=== PATIENT | female | born 1945 | race Caucasian/White ===

== ENCOUNTER → 2017-08-28 | Outpatient (CLI) | payer MEDICARE | LOC: RAD 14:10 | PROVIDERS: ATTEND Physician Assistant Medical | DX: J98.11 Atelectasis (principal) | CPT/HCPCS: 71046 ==

== ENCOUNTER 2017-12-20 10:54 | Inpatient (IN) | payer MEDICARE ==
[~2017-12-20] VITALS: Ht 149.9 cm; Wt 93.1 kg
[~2017-12-20 10:54] MED LIST: ALLO300T PO; AMLO5TAB2 PO; ASPI-515 PO; ATOR-2 PO; BUSP15TA PO; FLUO25PO PO; INSU100V8 SQ; METO25TA4 PO
[2017-12-20] MEDS ORDERED: SODIUM CHLORIDE FLUSH 10ML SYR IVF ONE (12:00)
[2017-12-20] MEDS ORDERED: SODIUM CHLORIDE 0.9% 1,000ML IVBOLUS ONE (12:00)
[2017-12-20] MEDS ORDERED: ATOR40TA78 PO (12:02)
[2017-12-20] MEDS ORDERED: CHOL4POW3 PO (12:06)
[2017-12-20 13:25] LABS: BASOPHILS # (AUTO) 0.09 x10^3/uL (0-0.1); BASOPHILS % (AUTO) 1 % (0-1); EOSINOPHILS # (AUTO) 0.58 x10^3/uL (0-0.4); EOSINOPHILS % (AUTO) 4 % (1-7); LYMPHOCYTES # (AUTO) 0.89 x10^3/uL (1-3.4); LYMPHOCYTES % (AUTO) 6 % (22-44); MD NO; MEAN CORPUSCULAR HEMOGLOBIN 31.7 pg (27.0-34.8); MEAN CORPUSCULAR HGB CONC 31.7 g/dL (32.4-35.8); MEAN CORPUSCULAR VOLUME 99.9 fL (80-100); MEAN PLATELET VOLUME 7.8 fL (7.4-10.4); MONOCYTES # (AUTO) 1.39 x10^3/uL (0.2-0.8); MONOCYTES % (AUTO) 9 % (2-9); NEUTROPHILS # (AUTO) 12.78 x10^3/uL (1.8-6.8); NEUTROPHILS % (AUTO) 81 % (42-75); PLATELET COUNT 504 x10^3/uL (130-400); RED BLOOD COUNT 2.49 x10^6/uL (3.82-5.3); RED CELL DISTRIBUTION WIDTH 20.4 % (9.6-15.2)
[2017-12-20] MEDS ORDERED: DAPTOMYCIN 750 MG (13:34)
[2017-12-20 13:35] LABS: ALANINE AMINOTRANSFERASE 48 U/L (12-78); ALBUMIN 1.7 g/dL (3.4-5.0); ANION GAP 6 mmol/L (5-15); CALCIUM 8.4 mg/dL (8.5-10.1); CHLORIDE 103 mmol/L (98-107)
[2017-12-20] MEDS ORDERED: INSU100I28 SQ (13:38)
[2017-12-20] MEDS ORDERED: CHOL4POW3 PEG (13:39)
[2017-12-20 13:40] LABS: ALKALINE PHOSPHATASE 304 U/L (45-117); BILIRUBIN,TOTAL 0.3 mg/dL (0.2-1.0); CREATININE 1.73 mg/dL (0.55-1.02); TOTAL PROTEIN 6.6 g/dL (6.4-8.2); TROPONIN I < 0.015 ng/mL (0.000-0.045)
[2017-12-20] MEDS ORDERED: INSULIN NPH SQ (13:42)
[2017-12-20] MEDS ORDERED: ENOXAPARIN 30 MG/0.3 ML SQ SCH (14:00)
[2017-12-20] MEDS ORDERED: ENALAPRILAT 1.25 MG/ML, 2ML IVPush PRN (14:00)
[2017-12-20] MEDS ORDERED: PIPERACILLIN/TAZO/PMX 3.375GM 50 ML IV SCH (14:00)
[2017-12-20] MEDS ORDERED: DUONEB (14:22)
[2017-12-20 14:52] LABS: INTERNATIONAL NORMALIZED RATIO 0.92 (0.93-1.1); PROTHROMBIN TIME 9.6 Seconds (9.6-11.5)
[2017-12-20 15:10] LABS: HEMOGLOBIN A1C 5.5 % (4.2-6.3)
[2017-12-20] MEDS ORDERED: ALBUTEROL/IPRATROPIUM 2.5MG/0.5MG, 3 ML NPPB PRN (15:30)
[2017-12-20 15:34] LABS: FREE T4 (FREE THYROXINE) 0.81 ng/dL (0.76-1.46)
[2017-12-20] MEDS ORDERED: GUAIFENESIN 200 MG TABLET PO SCH (16:00)
[2017-12-20] MEDS: PIPERACILLIN/TAZO/PMX 3.375GM 50 ML IV SCH ×2 (17:26→22:23)
[2017-12-20] MEDS: HEPARIN 5,000 UNITS/ML, 1ML SQ SCH (17:27)
[2017-12-20] MEDS ORDERED: CATHFLO-ALTEPLASE 2 MG/2 ML CATHFLUSH ONE ×2 (18:00)
[2017-12-20] MEDS: INSULIN LISPRO 100 UNITS/ML, PEN SQ-INSULIN SCH ×2 (18:16→22:23)
[2017-12-20] MEDS: DOXYCYCLINE 100 MG in DEXTROSE 5% 250 ML IV SCH (18:19)
[2017-12-20 18:38] VITALS: BP 132/67
[2017-12-20 19:01] LABS: OCCULT BLOOD NEGATIVE (NEGATIVE)
[2017-12-20 19:11] LABS: CLOSTRIDIUM DIFFICILE ANTIGEN NEGATIVE; CLOSTRIDIUM DIFFICILE TOXIN NEGATIVE (Negative)
[2017-12-20 19:22] LABS: FOLATE LEVEL 17.5 ng/mL (3.1-17.5)
[2017-12-20 19:26] LABS: ABSOLUTE RETICS # 0.139 x10^6/uL (0.5-2.5); RETICULOCYTE COUNT % 5.7 % (0.5-1.5)
[2017-12-20 19:28] LABS: RED BLOOD COUNT 2.44 x10^6/uL (3.82-5.3)
[2017-12-20 19:30] LABS: TROPONIN I < 0.015 ng/mL (0.000-0.045)
[2017-12-20 19:34] LABS: FREE T4 (FREE THYROXINE) 0.88 ng/dL (0.76-1.46)
[2017-12-20] MEDS: ALBUTEROL/IPRATROPIUM 2.5MG/0.5MG, 3 ML NPPB SCH (19:52)
[2017-12-20] MEDS: DAPTOMYCIN 350 MG in SODIUM CHLORIDE 0.9% 100 ML IV SCH (20:38)
[2017-12-20] MEDS: BUSPIRONE 10 MG TABLET PEG SCH (20:38)
[2017-12-20] MEDS: ATORVASTATIN 40 MG TABLET PEG SCH (20:38)
[2017-12-20] MEDS: CHOLESTYRAMINE LIGHT 4GM PACKET PEG SCH (20:58)
[2017-12-20] MEDS: GUAIFENESIN 100 MG/5 ML, 10ML UDC PEG SCH (20:58)
[2017-12-20 21:50] LABS: MICROSCOPIC INDICATED
[2017-12-20 22:45] LABS: TROPONIN I < 0.015 ng/mL (0.000-0.045)
[2017-12-21 02:30] VITALS: BP 139/71
[2017-12-21] MEDS: HEPARIN 5,000 UNITS/ML, 1ML SQ SCH ×3 (02:57→17:05)
[2017-12-21] MEDS: PIPERACILLIN/TAZO/PMX 3.375GM 50 ML IV SCH ×4 (04:19→20:46)
[2017-12-21] MEDS: DOXYCYCLINE 100 MG in DEXTROSE 5% 250 ML IV SCH ×2 (06:05→17:04)
[2017-12-21] MEDS: GUAIFENESIN 100 MG/5 ML, 10ML UDC PEG SCH ×4 (06:14→20:46)
[2017-12-21 06:47] LABS: THYROID STIMULATING HORMONE 5.06 mIU/L (0.358-3.740)
[2017-12-21] MEDS: ALBUTEROL/IPRATROPIUM 2.5MG/0.5MG, 3 ML NPPB SCH ×4 (07:30→20:00)
[2017-12-21 07:35] VITALS: BP 117/62
[2017-12-21] MEDS: INSULIN LISPRO 100 UNITS/ML, PEN SQ-INSULIN SCH ×4 (09:51→22:16)
[2017-12-21] MEDS: CALCIUM ACETATE 667 MG CAPSULE PO SCH ×3 (09:52→20:46)
[2017-12-21] MEDS: BUSPIRONE 10 MG TABLET PEG SCH ×2 (09:52→20:46)
[2017-12-21] MEDS: ALLOPURINOL 300 MG TABLET PEG SCH (09:52)
[2017-12-21] MEDS: METOPROLOL TARTRATE 25 MG TABLET PEG SCH (09:53)
[2017-12-21] MEDS: CHOLESTYRAMINE LIGHT 4GM PACKET PEG SCH ×2 (09:53→20:47)
[2017-12-21 09:55] VITALS: BP 138/79
[2017-12-21 11:36] LABS: BASOPHILS # (AUTO) 0.02 x10^3/uL (0-0.1); BASOPHILS % (AUTO) 0 % (0-1); EOSINOPHILS # (AUTO) 0.47 x10^3/uL (0-0.4); EOSINOPHILS % (AUTO) 4 % (1-7); LYMPHOCYTES # (AUTO) 0.74 x10^3/uL (1-3.4); LYMPHOCYTES % (AUTO) 6 % (22-44); MD NO; MEAN CORPUSCULAR VOLUME 100.1 fL (80-100); MEAN PLATELET VOLUME 7.3 fL (7.4-10.4); MONOCYTES # (AUTO) 0.81 x10^3/uL (0.2-0.8); MONOCYTES % (AUTO) 6 % (2-9); NEUTROPHILS # (AUTO) 11.34 x10^3/uL (1.8-6.8); NEUTROPHILS % (AUTO) 85 % (42-75); PLATELET COUNT 459 x10^3/uL (130-400); RED BLOOD COUNT 2.46 x10^6/uL (3.82-5.3); RED CELL DISTRIBUTION WIDTH 20.4 % (9.6-15.2)
[2017-12-21 11:48] LABS: ALANINE AMINOTRANSFERASE 43 U/L (12-78); ALBUMIN 1.6 g/dL (3.4-5.0); ANION GAP 8 mmol/L (5-15); CALCIUM 7.6 mg/dL (8.5-10.1); CHLORIDE 104 mmol/L (98-107)
[2017-12-21 11:50] LABS: ALKALINE PHOSPHATASE 260 U/L (45-117); BILIRUBIN,TOTAL 0.6 mg/dL (0.2-1.0); CREATININE 1.69 mg/dL (0.55-1.02); TOTAL PROTEIN 6.4 g/dL (6.4-8.2)
[2017-12-21] MEDS ORDERED: FUROSEMIDE 40 MG/4 ML IV ONE (12:30)
[2017-12-21 12:51] VITALS: BP 105/66
[2017-12-21 13:44] LABS: MICROSCOPIC INDICATED
[2017-12-21 13:48] LABS: CULTURE INDICATED? YES
[2017-12-21 19:21] LABS: ANION GAP 9 mmol/L (5-15); CALCIUM 7.7 mg/dL (8.5-10.1); CHLORIDE 104 mmol/L (98-107); CREATININE 1.71 mg/dL (0.55-1.02)
[2017-12-21 19:53] VITALS: BP 102/58
[2017-12-21] MEDS: DAPTOMYCIN 350 MG in SODIUM CHLORIDE 0.9% 100 ML IV SCH (20:12)
[2017-12-21] MEDS: ATORVASTATIN 40 MG TABLET PEG SCH (20:46)
[2017-12-21] MEDS ORDERED: INSULIN GLARGINE 100 UNITS/ML, PEN SQ-INSULIN SCH (21:00)
[2017-12-22] MEDS: HEPARIN 5,000 UNITS/ML, 1ML SQ SCH ×3 (01:35→17:37)
[2017-12-22] MEDS: PIPERACILLIN/TAZO/PMX 3.375GM 50 ML IV SCH ×2 (03:07→09:28)
[2017-12-22 04:00] VITALS: BP 142/71
[2017-12-22 04:51] LABS: MEAN CORPUSCULAR HEMOGLOBIN 32.9 pg (27.0-34.8); MEAN CORPUSCULAR HGB CONC 32.6 g/dL (32.4-35.8); MEAN CORPUSCULAR VOLUME 101.2 fL (80-100); MEAN PLATELET VOLUME 7.3 fL (7.4-10.4); PLATELET COUNT 425 x10^3/uL (130-400); RED BLOOD COUNT 2.35 x10^6/uL (3.82-5.3); RED CELL DISTRIBUTION WIDTH 19.8 % (9.6-15.2)
[2017-12-22] MEDS: DOXYCYCLINE 100 MG in DEXTROSE 5% 250 ML IV SCH ×2 (05:08→17:37)
[2017-12-22] MEDS: GUAIFENESIN 100 MG/5 ML, 10ML UDC PEG SCH ×4 (05:08→22:03)
[2017-12-22 05:48] LABS: BASOPHILS % (AUTO) 0 % (0-1); EOSINOPHILS # (AUTO) 0.61 x10^3/uL (0-0.4); EOSINOPHILS % (AUTO) 4 % (1-7); LYMPHOCYTES # (AUTO) 0.62 x10^3/uL (1-3.4); LYMPHOCYTES % (AUTO) 4 % (22-44); MD SCAN; MONOCYTES # (AUTO) 0.72 x10^3/uL (0.2-0.8); MONOCYTES % (AUTO) 5 % (2-9); NEUTROPHILS # (AUTO) 13.83 x10^3/uL (1.8-6.8); NEUTROPHILS % (AUTO) 88 % (42-75)
[2017-12-22 06:41] LABS: ALANINE AMINOTRANSFERASE 41 U/L (12-78); ALBUMIN 1.5 g/dL (3.4-5.0); ANION GAP 9 mmol/L (5-15); CALCIUM 7.7 mg/dL (8.5-10.1); CHLORIDE 100 mmol/L (98-107); CREATININE 1.77 mg/dL (0.55-1.02)
[2017-12-22 06:46] LABS: ALKALINE PHOSPHATASE 232 U/L (45-117); BILIRUBIN,TOTAL 0.4 mg/dL (0.2-1.0); TOTAL PROTEIN 6.1 g/dL (6.4-8.2)
[2017-12-22 07:34] VITALS: BP 136/66
[2017-12-22] MEDS: ALBUTEROL/IPRATROPIUM 2.5MG/0.5MG, 3 ML NPPB SCH ×4 (07:35→20:00)
[2017-12-22] MEDS: CALCIUM ACETATE 667 MG CAPSULE PO SCH ×3 (09:28→22:03)
[2017-12-22] MEDS: ALLOPURINOL 300 MG TABLET PEG SCH (09:28)
[2017-12-22] MEDS: METOPROLOL TARTRATE 25 MG TABLET PEG SCH (09:28)
[2017-12-22] MEDS: BUSPIRONE 10 MG TABLET PEG SCH ×2 (09:28→21:00)
[2017-12-22] MEDS: INSULIN LISPRO 100 UNITS/ML, PEN SQ-INSULIN SCH ×4 (09:29→22:02)
[2017-12-22] MEDS: CHOLESTYRAMINE LIGHT 4GM PACKET PEG SCH ×2 (09:30→22:03)
[2017-12-22 12:51] VITALS: BP 128/91
[2017-12-22] MEDS: PIPERACILLIN/TAZO/PMX 2.25GM 50 ML IV SCH ×2 (16:02→22:00)
[2017-12-22] MEDS ORDERED: INSULIN GLARGINE 100 UNITS/ML, PEN SQ-INSULIN SCH (21:00)
[2017-12-22] MEDS ORDERED: BUSPIRONE 5 MG TABLET ONE (21:29)
[2017-12-22 21:43] VITALS: BP 112/62
[2017-12-22] MEDS: ATORVASTATIN 40 MG TABLET PEG SCH (22:03)
[2017-12-23] MEDS: HEPARIN 5,000 UNITS/ML, 1ML SQ SCH ×3 (01:39→16:44)
[2017-12-23 02:03] VITALS: BP 148/60
[2017-12-23] MEDS: PIPERACILLIN/TAZO/PMX 2.25GM 50 ML IV SCH ×3 (04:14→18:26)
[2017-12-23 05:05] LABS: MEAN CORPUSCULAR HEMOGLOBIN 32.6 pg (27.0-34.8); MEAN CORPUSCULAR HGB CONC 32.6 g/dL (32.4-35.8); MEAN CORPUSCULAR VOLUME 100.1 fL (80-100); MEAN PLATELET VOLUME 7.6 fL (7.4-10.4); PLATELET COUNT 461 x10^3/uL (130-400); RED BLOOD COUNT 2.35 x10^6/uL (3.82-5.3); RED CELL DISTRIBUTION WIDTH 19.5 % (9.6-15.2)
[2017-12-23 05:07] LABS: ALBUMIN 1.5 g/dL (3.4-5.0); ANION GAP 11 mmol/L (5-15); CALCIUM 8.2 mg/dL (8.5-10.1); CHLORIDE 100 mmol/L (98-107)
[2017-12-23 05:10] LABS: ALANINE AMINOTRANSFERASE 37 U/L (12-78); ALKALINE PHOSPHATASE 212 U/L (45-117); BILIRUBIN,TOTAL 0.4 mg/dL (0.2-1.0); CREATINE KINASE, TOTAL 14 U/L (26-192); CREATININE 1.61 mg/dL (0.55-1.02); TOTAL PROTEIN 6.3 g/dL (6.4-8.2)
[2017-12-23] MEDS: DOXYCYCLINE 100 MG in DEXTROSE 5% 250 ML IV SCH ×2 (05:41→16:45)
[2017-12-23] MEDS: GUAIFENESIN 100 MG/5 ML, 10ML UDC PEG SCH ×4 (05:41→22:01)
[2017-12-23 05:56] LABS: BASOPHILS # (AUTO) 0.01 x10^3/uL (0-0.1); BASOPHILS % (AUTO) 0 % (0-1); EOSINOPHILS # (AUTO) 0.45 x10^3/uL (0-0.4); EOSINOPHILS % (AUTO) 2 % (1-7); LYMPHOCYTES # (AUTO) 0.71 x10^3/uL (1-3.4); LYMPHOCYTES % (AUTO) 4 % (22-44); MD SCAN; MONOCYTES # (AUTO) 1.14 x10^3/uL (0.2-0.8); MONOCYTES % (AUTO) 6 % (2-9); NEUTROPHILS # (AUTO) 16.31 x10^3/uL (1.8-6.8); NEUTROPHILS % (AUTO) 88 % (42-75)
[2017-12-23] MEDS: ALBUTEROL/IPRATROPIUM 2.5MG/0.5MG, 3 ML NPPB SCH ×4 (07:00→20:20)
[2017-12-23 07:23] VITALS: BP 140/69
[2017-12-23] MEDS ORDERED: CEFTAROLINE 600 MG in SODIUM CHLORIDE 0.9% 100 ML IV SCH (07:30)
[2017-12-23] MEDS ORDERED: MIDAZOLAM 1 MG/ML, 5ML ONE (08:00)
[2017-12-23] MEDS ORDERED: PROPOFOL 10 MG/ML, 100ML IV ONE (08:00)
[2017-12-23] MEDS ORDERED: VECURONIUM 10 MG ONE (08:00)
[2017-12-23] MEDS: CALCIUM ACETATE 667 MG CAPSULE PO SCH ×3 (09:27→22:01)
[2017-12-23] MEDS: METOPROLOL TARTRATE 25 MG TABLET PEG SCH (09:28)
[2017-12-23] MEDS: INSULIN LISPRO 100 UNITS/ML, PEN SQ-INSULIN SCH ×4 (09:28→22:02)
[2017-12-23] MEDS: BUSPIRONE 10 MG TABLET PEG SCH ×2 (09:28→22:01)
[2017-12-23] MEDS: ALLOPURINOL 300 MG TABLET PEG SCH (09:28)
[2017-12-23 12:05] VITALS: BP 146/70
[2017-12-23] MEDS: FUROSEMIDE 40 MG/4 ML IV SCH ×2 (12:33→16:45)
[2017-12-23] MEDS ORDERED: DAPTOMYCIN 350 MG in SODIUM CHLORIDE 0.9% 100 ML IV SCH (20:00)
[2017-12-23] MEDS ORDERED: INSULIN GLARGINE 100 UNITS/ML, PEN SQ-INSULIN SCH (21:00)
[2017-12-23 21:41] VITALS: BP 121/58
[2017-12-23] MEDS: ATORVASTATIN 40 MG TABLET PEG SCH (22:01)
[2017-12-23] MEDS: CHOLESTYRAMINE LIGHT 4GM PACKET PEG SCH (22:01)
[2017-12-23] MEDS: MICAFUNGIN 100 MG in SODIUM CHLORIDE 0.9% 100 ML IV SCH (22:01)
[2017-12-23] MEDS: CEFTAROLINE 400 MG in SODIUM CHLORIDE 0.9% 100 ML IV SCH (23:19)
[2017-12-24] MEDS: PIPERACILLIN/TAZO/PMX 2.25GM 50 ML IV SCH ×4 (00:35→17:17)
[2017-12-24] MEDS: HEPARIN 5,000 UNITS/ML, 1ML SQ SCH ×3 (02:04→16:03)
[2017-12-24 02:34] VITALS: BP 121/49
[2017-12-24] MEDS ORDERED: ONDANSETRON 2MG/ML, 2ML IVPush PRN (05:30)
[2017-12-24 05:55] LABS: MEAN CORPUSCULAR HEMOGLOBIN 33.3 pg (27.0-34.8); MEAN CORPUSCULAR HGB CONC 33.7 g/dL (32.4-35.8); PLATELET COUNT 448 x10^3/uL (130-400); RED CELL DISTRIBUTION WIDTH 19.1 % (9.6-15.2)
[2017-12-24 06:09] LABS: ALANINE AMINOTRANSFERASE 31 U/L (12-78); ALBUMIN 1.5 g/dL (3.4-5.0); ANION GAP 9 mmol/L (5-15); CALCIUM 8.6 mg/dL (8.5-10.1); CHLORIDE 98 mmol/L (98-107); CREATININE 1.77 mg/dL (0.55-1.02)
[2017-12-24 06:11] LABS: ALKALINE PHOSPHATASE 199 U/L (45-117); BILIRUBIN,TOTAL 0.3 mg/dL (0.2-1.0); TOTAL PROTEIN 6.4 g/dL (6.4-8.2)
[2017-12-24 06:23] LABS: BASOPHILS # (AUTO) 0.02 x10^3/uL (0-0.1); BASOPHILS % (AUTO) 0 % (0-1); EOSINOPHILS # (AUTO) 0.65 x10^3/uL (0-0.4); EOSINOPHILS % (AUTO) 4 % (1-7); LYMPHOCYTES # (AUTO) 0.98 x10^3/uL (1-3.4); LYMPHOCYTES % (AUTO) 6 % (22-44); MD SCAN; MONOCYTES # (AUTO) 1.19 x10^3/uL (0.2-0.8); MONOCYTES % (AUTO) 8 % (2-9); NEUTROPHILS # (AUTO) 12.68 x10^3/uL (1.8-6.8); NEUTROPHILS % (AUTO) 82 % (42-75)
[2017-12-24] MEDS: DOXYCYCLINE 100 MG in DEXTROSE 5% 250 ML IV SCH ×2 (06:23→17:17)
[2017-12-24] MEDS: GUAIFENESIN 100 MG/5 ML, 10ML UDC PEG SCH ×4 (06:24→21:40)
[2017-12-24] MEDS: ALBUTEROL/IPRATROPIUM 2.5MG/0.5MG, 3 ML NPPB SCH ×4 (07:00→22:22)
[2017-12-24] MEDS: FUROSEMIDE 40 MG/4 ML IV SCH ×4 (07:30→16:11)
[2017-12-24 08:23] VITALS: BP 99/53
[2017-12-24] MEDS: CEFTAROLINE 400 MG in SODIUM CHLORIDE 0.9% 100 ML IV SCH ×2 (08:39→23:04)
[2017-12-24] MEDS: INSULIN LISPRO 100 UNITS/ML, PEN SQ-INSULIN SCH ×4 (08:39→21:52)
[2017-12-24] MEDS: METOPROLOL TARTRATE 25 MG TABLET PEG SCH (08:40)
[2017-12-24] MEDS: CALCIUM ACETATE 667 MG CAPSULE PO SCH ×3 (08:41→21:41)
[2017-12-24] MEDS: BUSPIRONE 10 MG TABLET PEG SCH ×2 (08:41→21:40)
[2017-12-24] MEDS: ALLOPURINOL 300 MG TABLET PEG SCH (08:41)
[2017-12-24] MEDS ORDERED: FUROSEMIDE 40 MG/4 ML IV ONE (12:30)
[2017-12-24 13:18] VITALS: BP 114/69
[2017-12-24] MEDS ORDERED: SODIUM BICARB 8.4%, 50ML SYRINGE ONE (14:17)
[2017-12-24] MEDS ORDERED: SODIUM BICARB 8.4%, 50ML SYRINGE IVPush ONE (14:30)
[2017-12-24] MEDS ORDERED: MIDAZOLAM 1 MG/ML, 5ML IVPush ONE (15:25)
[2017-12-24] MEDS ORDERED: LIDOCAINE-MPF 1%, 2ML ENDO PRN (15:30)
[2017-12-24] MEDS ORDERED: PHARMACY MAY ADJ FOR RENAL FX MC SCH (15:30)
[2017-12-24] MEDS: PROPOFOL 100 ML IV PRN ×2 (15:30→20:46)
[2017-12-24] MEDS ORDERED: SODIUM CHLORIDE 0.9%, 500ML IVBOLUS ONE (16:30)
[2017-12-24] MEDS: MICAFUNGIN 100 MG in SODIUM CHLORIDE 0.9% 100 ML IV SCH (20:48)
[2017-12-24] MEDS ORDERED: INSULIN GLARGINE 100 UNITS/ML, PEN SQ-INSULIN SCH (21:00)
[2017-12-24] MEDS: ATORVASTATIN 40 MG TABLET PEG SCH (21:39)
[2017-12-24] MEDS: CHOLESTYRAMINE LIGHT 4GM PACKET PEG SCH (21:41)
[2017-12-25] MEDS: PIPERACILLIN/TAZO/PMX 2.25GM 50 ML IV SCH ×5 (00:16→22:34)
[2017-12-25] MEDS: HEPARIN 5,000 UNITS/ML, 1ML SQ SCH ×3 (01:24→17:36)
[2017-12-25] MEDS: ALBUTEROL/IPRATROPIUM 2.5MG/0.5MG, 3 ML NPPB SCH ×6 (02:20→22:40)
[2017-12-25] MEDS: PROPOFOL 100 ML IV PRN ×2 (02:28→07:37)
[2017-12-25 04:00] VITALS: BP 111/46
[2017-12-25] MEDS: DOXYCYCLINE 100 MG in DEXTROSE 5% 250 ML IV SCH ×2 (04:26→17:12)
[2017-12-25 05:43] LABS: MEAN CORPUSCULAR HEMOGLOBIN 32.5 pg (27.0-34.8); MEAN CORPUSCULAR HGB CONC 32.8 g/dL (32.4-35.8); MEAN CORPUSCULAR VOLUME 98.9 fL (80-100); MEAN PLATELET VOLUME 6.9 fL (7.4-10.4); PLATELET COUNT 391 x10^3/uL (130-400); RED BLOOD COUNT 2.27 x10^6/uL (3.82-5.3); RED CELL DISTRIBUTION WIDTH 18.5 % (9.6-15.2)
[2017-12-25 06:13] LABS: BASOPHILS # (AUTO) 0.05 x10^3/uL (0-0.1); BASOPHILS % (AUTO) 0 % (0-1); EOSINOPHILS # (AUTO) 0.32 x10^3/uL (0-0.4); EOSINOPHILS % (AUTO) 2 % (1-7); LYMPHOCYTES # (AUTO) 1.22 x10^3/uL (1-3.4); LYMPHOCYTES % (AUTO) 9 % (22-44); MD SCAN; MONOCYTES # (AUTO) 0.86 x10^3/uL (0.2-0.8); MONOCYTES % (AUTO) 6 % (2-9); NEUTROPHILS # (AUTO) 11.69 x10^3/uL (1.8-6.8); NEUTROPHILS % (AUTO) 83 % (42-75)
[2017-12-25 06:15] LABS: ANION GAP 12 mmol/L (5-15); CALCIUM 8.2 mg/dL (8.5-10.1); CHLORIDE 99 mmol/L (98-107); CREATININE 2.24 mg/dL (0.55-1.02); TRIGLYCERIDES 116 mg/dL (50-200)
[2017-12-25] MEDS: GUAIFENESIN 100 MG/5 ML, 10ML UDC PEG SCH ×4 (06:26→20:35)
[2017-12-25] MEDS: INSULIN LISPRO 100 UNITS/ML, PEN SQ-INSULIN SCH ×4 (07:00→20:36)
[2017-12-25] MEDS: FUROSEMIDE 40 MG/4 ML IV SCH (07:37)
[2017-12-25] MEDS ORDERED: PANTOPRAZOLE 40 MG IV IVPush SCH (09:00)
[2017-12-25] MEDS: METOPROLOL TARTRATE 25 MG TABLET PEG SCH (09:47)
[2017-12-25] MEDS: CEFTAROLINE 300 MG in SODIUM CHLORIDE 0.9% 100 ML IV SCH ×2 (09:47→22:34)
[2017-12-25] MEDS: ALLOPURINOL 300 MG TABLET PEG SCH (09:47)
[2017-12-25] MEDS: BUSPIRONE 10 MG TABLET PEG SCH ×2 (09:47→20:36)
[2017-12-25] MEDS: CALCIUM ACETATE 667 MG CAPSULE PO SCH ×3 (09:48→20:36)
[2017-12-25] MEDS: CHOLESTYRAMINE LIGHT 4GM PACKET PEG SCH ×2 (09:48→20:35)
[2017-12-25] MEDS: PANTOPRAZOLE 40 MG IV IVPush SCH (09:48)
[2017-12-25] MEDS ORDERED: DEXTROSE 50%, 50ML SYRINGE ONE (11:57)
[2017-12-25] MEDS ORDERED: DEXTROSE 50%, 50ML SYRINGE IVPush PRN (12:30)
[2017-12-25] MEDS ORDERED: DEXTROSE 4 GM TAB.CHEW PO PRN (12:30)
[2017-12-25] MEDS ORDERED: GLUCAGON 1 MG IM PRN (12:30)
[2017-12-25] MEDS ORDERED: CATHFLO-ALTEPLASE 2 MG/2 ML CATHFLUSH ONE (15:00)
[2017-12-25] MEDS: MICAFUNGIN 100 MG in SODIUM CHLORIDE 0.9% 100 ML IV SCH (19:38)
[2017-12-25] MEDS: ATORVASTATIN 40 MG TABLET PEG SCH (20:35)
[2017-12-25] MEDS: SODIUM CHLORIDE FLUSH 10ML SYR IVF SCH (20:35)
[2017-12-25] MEDS: INSULIN GLARGINE 100 UNITS/ML, PEN SQ-INSULIN SCH (20:37)
[2017-12-26] MEDS: HEPARIN 5,000 UNITS/ML, 1ML SQ SCH ×3 (00:29→18:10)
[2017-12-26] MEDS: ALBUTEROL/IPRATROPIUM 2.5MG/0.5MG, 3 ML NPPB SCH ×6 (02:36→22:37)
[2017-12-26 04:00] VITALS: BP 129/39
[2017-12-26] MEDS: DOXYCYCLINE 100 MG in DEXTROSE 5% 250 ML IV SCH (04:11)
[2017-12-26] MEDS: PIPERACILLIN/TAZO/PMX 2.25GM 50 ML IV SCH (04:11)
[2017-12-26 04:48] LABS: MEAN CORPUSCULAR HEMOGLOBIN 33.9 pg (27.0-34.8); MEAN CORPUSCULAR HGB CONC 34.4 g/dL (32.4-35.8); MEAN CORPUSCULAR VOLUME 98.4 fL (80-100); MEAN PLATELET VOLUME 6.9 fL (7.4-10.4); PLATELET COUNT 414 x10^3/uL (130-400); RED BLOOD COUNT 2.19 x10^6/uL (3.82-5.3); RED CELL DISTRIBUTION WIDTH 18.7 % (9.6-15.2)
[2017-12-26 04:49] LABS: ANION GAP 14 mmol/L (5-15); CALCIUM 7.8 mg/dL (8.5-10.1); CHLORIDE 101 mmol/L (98-107); CREATININE 2.38 mg/dL (0.55-1.02)
[2017-12-26 05:34] LABS: MD YES
[2017-12-26 05:35] LABS: BAND#(MANUAL) 0.15 x10^3/uL; BANDS%(MANUAL) 1 % (0-7); BASOS#(MANUAL) 0.15 x10^3/uL (0-0.1); BASOS% (MANUAL) 1 % (0-1); EOS#(MANUAL) 0.15 x10^3/uL (0.0-0.4); EOS% (MANUAL) 1 % (1-7); LYMPH#(MANUAL) 1.37 x10^3/uL (1-3.4); LYMPHS% (MANUAL) 9 % (22-44); MONOS% (MANUAL) 2 % (2-9); MYELOCYTES# (MANUAL) 0.15 x10^3/uL (0-0); MYELOCYTES% (MANUAL) 1 % (0-0); SEG#(MANUAL) 12.92 x10^3/uL (1.8-6.8); SEGS% (MANUAL) 85 % (42-75)
[2017-12-26 05:37] LABS: ANISOCYTOSIS 1+
[2017-12-26 05:38] LABS: POLYCHROMASIA 1+
[2017-12-26 05:50] LABS: <PLATELET ESTIMATE> INCREASED; <PLT MORPHOLOGY> NORMAL PLT MORPH
[2017-12-26] MEDS: INSULIN LISPRO 100 UNITS/ML, PEN SQ-INSULIN SCH ×4 (05:50→21:00)
[2017-12-26] MEDS: GUAIFENESIN 100 MG/5 ML, 10ML UDC PEG SCH ×4 (05:51→20:45)
[2017-12-26] MEDS ORDERED: MAGNESIUM SULFATE PMX 2GM/50ML 50 ML IV ONE (09:00)
[2017-12-26] MEDS: CALCIUM ACETATE 667 MG CAPSULE PO SCH ×3 (09:33→20:45)
[2017-12-26] MEDS: PANTOPRAZOLE 40 MG IV IVPush SCH (09:33)
[2017-12-26] MEDS: ALLOPURINOL 300 MG TABLET PEG SCH (09:34)
[2017-12-26] MEDS: BUSPIRONE 10 MG TABLET PEG SCH ×2 (09:34→20:45)
[2017-12-26] MEDS: METOPROLOL TARTRATE 25 MG TABLET PEG SCH (09:34)
[2017-12-26] MEDS: CHOLESTYRAMINE LIGHT 4GM PACKET PEG SCH ×2 (09:35→20:45)
[2017-12-26] MEDS: SODIUM CHLORIDE FLUSH 10ML SYR IVF SCH ×2 (09:35→19:50)
[2017-12-26] MEDS: METRONIDAZOLE PMX 500MG/100ML 100 ML IV SCH ×2 (09:35→18:10)
[2017-12-26] MEDS: CEFTAROLINE 300 MG in SODIUM CHLORIDE 0.9% 100 ML IV SCH ×2 (10:40→22:46)
[2017-12-26] MEDS: MICAFUNGIN 100 MG in SODIUM CHLORIDE 0.9% 100 ML IV SCH (19:49)
[2017-12-26] MEDS: ATORVASTATIN 40 MG TABLET PEG SCH (20:45)
[2017-12-26] MEDS: INSULIN GLARGINE 100 UNITS/ML, PEN SQ-INSULIN SCH (21:59)
[2017-12-27] MEDS: HEPARIN 5,000 UNITS/ML, 1ML SQ SCH ×3 (00:21→16:50)
[2017-12-27] MEDS: METRONIDAZOLE PMX 500MG/100ML 100 ML IV SCH ×3 (00:22→17:41)
[2017-12-27] MEDS: INSULIN LISPRO 100 UNITS/ML, PEN SQ-INSULIN SCH ×4 (03:00→20:17)
[2017-12-27] MEDS: ALBUTEROL/IPRATROPIUM 2.5MG/0.5MG, 3 ML NPPB SCH ×5 (03:13→20:20)
[2017-12-27 04:00] LABS: ANION GAP 12 mmol/L (5-15); CALCIUM 7.9 mg/dL (8.5-10.1); CHLORIDE 105 mmol/L (98-107); CREATININE 2.29 mg/dL (0.55-1.02); TRIGLYCERIDES 107 mg/dL (50-200)
[2017-12-27 04:20] LABS: MEAN CORPUSCULAR HEMOGLOBIN 32.3 pg (27.0-34.8); MEAN CORPUSCULAR HGB CONC 32.3 g/dL (32.4-35.8); MEAN CORPUSCULAR VOLUME 99.8 fL (80-100); PLATELET COUNT 411 x10^3/uL (130-400); RED BLOOD COUNT 2.29 x10^6/uL (3.82-5.3); RED CELL DISTRIBUTION WIDTH 18.8 % (9.6-15.2)
[2017-12-27 05:40] LABS: MD YES
[2017-12-27 05:41] LABS: BASOS#(MANUAL) 0.14 x10^3/uL (0-0.1); BASOS% (MANUAL) 1 % (0-1); EOS#(MANUAL) 0.56 x10^3/uL (0.0-0.4); EOS% (MANUAL) 4 % (1-7); LYMPH#(MANUAL) 1.83 x10^3/uL (1-3.4); LYMPHS% (MANUAL) 13 % (22-44); METAMYELOCYTES# (MANUAL) 0.28 x10^3/uL (0-0); METAMYELOCYTES% (MANUAL) 2 % (0-1); MONOS#(MANUAL) 0.28 x10^3/uL (0.3-2.7); MONOS% (MANUAL) 2 % (2-9); SEGS% (MANUAL) 78 % (42-75)
[2017-12-27 05:42] LABS: ANISOCYTOSIS 1+
[2017-12-27 05:43] LABS: <PLATELET ESTIMATE> INCREASED; <PLT MORPHOLOGY> NORMAL PLT MORPH; POLYCHROMASIA 1+
[2017-12-27] MEDS: GUAIFENESIN 100 MG/5 ML, 10ML UDC PEG SCH ×4 (05:57→20:07)
[2017-12-27 06:19] VITALS: BP 122/62
[2017-12-27 07:24] VITALS: BP 111/49
[2017-12-27] MEDS: BUSPIRONE 10 MG TABLET PEG SCH ×2 (08:57→20:08)
[2017-12-27] MEDS: SODIUM CHLORIDE FLUSH 10ML SYR IVF SCH ×2 (08:57→20:14)
[2017-12-27] MEDS: METOPROLOL TARTRATE 25 MG TABLET PEG SCH (08:57)
[2017-12-27] MEDS: PANTOPRAZOLE 40 MG IV IVPush SCH (08:57)
[2017-12-27] MEDS: CHOLESTYRAMINE LIGHT 4GM PACKET PEG SCH ×2 (08:58→20:07)
[2017-12-27] MEDS: CALCIUM ACETATE 667 MG CAPSULE PO SCH ×3 (08:58→20:07)
[2017-12-27] MEDS: ALLOPURINOL 300 MG TABLET PEG SCH (08:58)
[2017-12-27] MEDS: CEFTAROLINE 300 MG in SODIUM CHLORIDE 0.9% 100 ML IV SCH ×2 (11:59→22:25)
[2017-12-27] MEDS: ATORVASTATIN 40 MG TABLET PEG SCH (20:08)
[2017-12-27] MEDS: MICAFUNGIN 100 MG in SODIUM CHLORIDE 0.9% 100 ML IV SCH (20:08)
[2017-12-27] MEDS: INSULIN GLARGINE 100 UNITS/ML, PEN SQ-INSULIN SCH (20:18)
[2017-12-28] MEDS: METRONIDAZOLE PMX 500MG/100ML 100 ML IV SCH ×3 (00:34→17:37)
[2017-12-28] MEDS: HEPARIN 5,000 UNITS/ML, 1ML SQ SCH ×3 (00:35→16:05)
[2017-12-28] MEDS: INSULIN LISPRO 100 UNITS/ML, PEN SQ-INSULIN SCH ×4 (04:34→23:53)
[2017-12-28 05:01] LABS: MEAN CORPUSCULAR HEMOGLOBIN 32.9 pg (27.0-34.8); MEAN CORPUSCULAR HGB CONC 32.7 g/dL (32.4-35.8); MEAN CORPUSCULAR VOLUME 100.4 fL (80-100); MEAN PLATELET VOLUME 6.9 fL (7.4-10.4); PLATELET COUNT 430 x10^3/uL (130-400); RED BLOOD COUNT 2.32 x10^6/uL (3.82-5.3); RED CELL DISTRIBUTION WIDTH 18.6 % (9.6-15.2)
[2017-12-28 05:09] LABS: ANION GAP 12 mmol/L (5-15); CALCIUM 7.7 mg/dL (8.5-10.1); CHLORIDE 108 mmol/L (98-107); CREATININE 2.31 mg/dL (0.55-1.02)
[2017-12-28 05:43] LABS: BASOPHILS # (AUTO) 0.03 x10^3/uL (0-0.1); BASOPHILS % (AUTO) 0 % (0-1); EOSINOPHILS # (AUTO) 0.77 x10^3/uL (0-0.4); EOSINOPHILS % (AUTO) 5 % (1-7); LYMPHOCYTES # (AUTO) 1.19 x10^3/uL (1-3.4); LYMPHOCYTES % (AUTO) 7 % (22-44); MD SCAN; MONOCYTES # (AUTO) 1.16 x10^3/uL (0.2-0.8); MONOCYTES % (AUTO) 7 % (2-9); NEUTROPHILS # (AUTO) 13.92 x10^3/uL (1.8-6.8); NEUTROPHILS % (AUTO) 82 % (42-75)
[2017-12-28] MEDS: ALBUTEROL/IPRATROPIUM 2.5MG/0.5MG, 3 ML NPPB SCH ×4 (07:00→20:08)
[2017-12-28] MEDS: GUAIFENESIN 100 MG/5 ML, 10ML UDC PEG SCH ×4 (09:21→23:02)
[2017-12-28] MEDS: METOPROLOL TARTRATE 25 MG TABLET PEG SCH (09:21)
[2017-12-28] MEDS: ALBUMIN HUMAN 25% 100 ML IV SCH ×2 (09:21→20:16)
[2017-12-28] MEDS: SODIUM CHLORIDE FLUSH 10ML SYR IVF SCH ×2 (09:22→23:03)
[2017-12-28] MEDS: CHOLESTYRAMINE LIGHT 4GM PACKET PEG SCH ×2 (09:22→23:02)
[2017-12-28] MEDS: ALLOPURINOL 300 MG TABLET PEG SCH (09:22)
[2017-12-28] MEDS: PANTOPRAZOLE 40 MG IV IVPush SCH (09:22)
[2017-12-28] MEDS: BUSPIRONE 10 MG TABLET PEG SCH ×2 (09:22→23:02)
[2017-12-28] MEDS: CALCIUM ACETATE 667 MG CAPSULE PO SCH ×3 (09:23→23:02)
[2017-12-28] MEDS: FUROSEMIDE 40 MG/4 ML IV SCH ×2 (10:20→23:02)
[2017-12-28] MEDS: CEFTAROLINE 300 MG in SODIUM CHLORIDE 0.9% 100 ML IV SCH ×2 (11:31→23:56)
[2017-12-28] MEDS: MICAFUNGIN 100 MG in SODIUM CHLORIDE 0.9% 100 ML IV SCH (20:16)
[2017-12-28] MEDS: SODIUM BICARBONATE 8.4% 150 MEQ in DEXTROSE 5% 1,000 ML IV SCH (22:42)
[2017-12-28] MEDS: ATORVASTATIN 40 MG TABLET PEG SCH (23:02)
[2017-12-28] MEDS: INSULIN GLARGINE 100 UNITS/ML, PEN SQ-INSULIN SCH (23:53)
[2017-12-29] MEDS: METRONIDAZOLE PMX 500MG/100ML 100 ML IV SCH (01:01)
[2017-12-29] MEDS: HEPARIN 5,000 UNITS/ML, 1ML SQ SCH ×3 (03:17→15:43)
[2017-12-29] MEDS: INSULIN LISPRO 100 UNITS/ML, PEN SQ-INSULIN SCH ×4 (03:20→21:49)
[2017-12-29] MEDS: GUAIFENESIN 100 MG/5 ML, 10ML UDC PEG SCH ×4 (05:15→21:35)
[2017-12-29 05:45] LABS: MEAN CORPUSCULAR HEMOGLOBIN 32.3 pg (27.0-34.8); MEAN CORPUSCULAR HGB CONC 32.2 g/dL (32.4-35.8); MEAN CORPUSCULAR VOLUME 100.3 fL (80-100); MEAN PLATELET VOLUME 6.7 fL (7.4-10.4); PLATELET COUNT 332 x10^3/uL (130-400); RED BLOOD COUNT 2.12 x10^6/uL (3.82-5.3); RED CELL DISTRIBUTION WIDTH 18.7 % (9.6-15.2)
[2017-12-29 05:50] LABS: CHLORIDE 110 mmol/L (98-107)
[2017-12-29 05:59] LABS: ALANINE AMINOTRANSFERASE 23 U/L (12-78); ALBUMIN 2.2 g/dL (3.4-5.0); ALKALINE PHOSPHATASE 136 U/L (45-117); ANION GAP 11 mmol/L (5-15); BILIRUBIN,TOTAL 0.5 mg/dL (0.2-1.0); CALCIUM 7.9 mg/dL (8.5-10.1); CREATININE 2.15 mg/dL (0.55-1.02); TOTAL PROTEIN 6.2 g/dL (6.4-8.2)
[2017-12-29 06:25] LABS: BASOPHILS # (AUTO) 0.03 x10^3/uL (0-0.1); BASOPHILS % (AUTO) 0 % (0-1); EOSINOPHILS # (AUTO) 0.44 x10^3/uL (0-0.4); EOSINOPHILS % (AUTO) 4 % (1-7); LYMPHOCYTES # (AUTO) 0.83 x10^3/uL (1-3.4); LYMPHOCYTES % (AUTO) 7 % (22-44); MD MORPH REVIEW ONLY; MONOCYTES # (AUTO) 0.68 x10^3/uL (0.2-0.8); MONOCYTES % (AUTO) 6 % (2-9); NEUTROPHILS # (AUTO) 9.88 x10^3/uL (1.8-6.8); NEUTROPHILS % (AUTO) 83 % (42-75)
[2017-12-29] MEDS: ALBUTEROL/IPRATROPIUM 2.5MG/0.5MG, 3 ML NPPB SCH ×5 (06:25→23:34)
[2017-12-29 06:26] LABS: <PLATELET ESTIMATE> ADEQUATE; <PLT MORPHOLOGY> NORMAL PLT MORPH; ANISOCYTOSIS 1+; POLYCHROMASIA 1+
[2017-12-29 09:00] VITALS: BP 139/67
[2017-12-29] MEDS: SODIUM BICARBONATE 8.4% 150 MEQ in DEXTROSE 5% 1,000 ML IV SCH (09:09)
[2017-12-29] MEDS: ALBUMIN HUMAN 25% 100 ML IV SCH (09:09)
[2017-12-29] MEDS: CHOLESTYRAMINE LIGHT 4GM PACKET PEG SCH ×2 (09:09→21:36)
[2017-12-29] MEDS: SODIUM CHLORIDE FLUSH 10ML SYR IVF SCH ×2 (09:10→21:47)
[2017-12-29] MEDS: BUSPIRONE 10 MG TABLET PEG SCH ×2 (09:10→21:36)
[2017-12-29] MEDS: PANTOPRAZOLE 40 MG IV IVPush SCH (09:10)
[2017-12-29] MEDS: ALLOPURINOL 300 MG TABLET PEG SCH (09:10)
[2017-12-29] MEDS: CALCIUM ACETATE 667 MG CAPSULE PO SCH ×3 (09:10→21:36)
[2017-12-29 09:19] VITALS: BP 139/67
[2017-12-29] MEDS: CEFTRIAXONE 2 GM in SODIUM CHLORIDE 0.9% 50 ML IV SCH (09:58)
[2017-12-29] MEDS: METOPROLOL TARTRATE 25 MG TABLET PEG SCH (09:58)
[2017-12-29] MEDS ORDERED: DOXYCYCLINE 100MG TABLET PO SCH (10:00)
[2017-12-29] MEDS: DOXYCYCLINE 50 MG/5 ML ORAL SUSP PO SCH ×2 (10:20→21:37)
[2017-12-29 10:22] VITALS: BP 123/65
[2017-12-29 12:29] VITALS: BP 161/73
[2017-12-29 12:45] VITALS: BP 146/66
[2017-12-29 13:54] VITALS: BP 146/66
[2017-12-29] MEDS ORDERED: ERGOCALCIFEROL 50,000 UNIT CAPSULE PO SCH (14:00)
[2017-12-29] MEDS ORDERED: FUROSEMIDE 40 MG/4 ML IV ONE (15:30)
[2017-12-29] MEDS ORDERED: PROPOFOL 10 MG/ML, 100ML IV ONE (15:55)
[2017-12-29] MEDS ORDERED: VECURONIUM 10 MG ONE (15:56)
[2017-12-29] MEDS ORDERED: MIDAZOLAM 1 MG/ML, 5ML ONE (15:56)
[2017-12-29] MEDS ORDERED: PHARMACY MAY ADJ FOR RENAL FX MC SCH (20:00)
[2017-12-29] MEDS ORDERED: LIDOCAINE-MPF 1%, 2ML ENDO PRN (20:00)
[2017-12-29] MEDS: MICAFUNGIN 100 MG in SODIUM CHLORIDE 0.9% 100 ML IV SCH ×2 (20:46→21:13)
[2017-12-29] MEDS: ATORVASTATIN 40 MG TABLET PEG SCH (21:36)
[2017-12-29] MEDS: INSULIN GLARGINE 100 UNITS/ML, PEN SQ-INSULIN SCH (21:48)
[2017-12-30] MEDS: HEPARIN 5,000 UNITS/ML, 1ML SQ SCH ×3 (00:29→17:00)
[2017-12-30] MEDS: PROPOFOL 100 ML IV PRN ×3 (02:27→14:49)
[2017-12-30] MEDS: INSULIN LISPRO 100 UNITS/ML, PEN SQ-INSULIN SCH ×4 (03:00→20:59)
[2017-12-30] MEDS: SODIUM BICARBONATE 8.4% 150 MEQ in DEXTROSE 5% 1,000 ML IV SCH (03:36)
[2017-12-30] MEDS: ALBUTEROL/IPRATROPIUM 2.5MG/0.5MG, 3 ML NPPB SCH ×6 (03:39→23:00)
[2017-12-30 04:51] LABS: BASOPHILS # (AUTO) 0.01 x10^3/uL (0-0.1); BASOPHILS % (AUTO) 0 % (0-1); EOSINOPHILS # (AUTO) 0.44 x10^3/uL (0-0.4); EOSINOPHILS % (AUTO) 4 % (1-7); LYMPHOCYTES # (AUTO) 0.83 x10^3/uL (1-3.4); LYMPHOCYTES % (AUTO) 8 % (22-44); MD NO; MEAN CORPUSCULAR HEMOGLOBIN 32.1 pg (27.0-34.8); MEAN CORPUSCULAR HGB CONC 32.7 g/dL (32.4-35.8); MEAN PLATELET VOLUME 6.8 fL (7.4-10.4); MONOCYTES # (AUTO) 0.59 x10^3/uL (0.2-0.8); MONOCYTES % (AUTO) 5 % (2-9); NEUTROPHILS % (AUTO) 83 % (42-75); PLATELET COUNT 271 x10^3/uL (130-400); RED CELL DISTRIBUTION WIDTH 19.3 % (9.6-15.2)
[2017-12-30 05:04] LABS: ANION GAP 10 mmol/L (5-15); CALCIUM 7.5 mg/dL (8.5-10.1); CHLORIDE 106 mmol/L (98-107)
[2017-12-30 05:06] LABS: CREATININE 1.94 mg/dL (0.55-1.02)
[2017-12-30] MEDS: GUAIFENESIN 100 MG/5 ML, 10ML UDC PEG SCH ×4 (05:44→20:59)
[2017-12-30] MEDS: PANTOPRAZOLE 40 MG IV IVPush SCH (08:53)
[2017-12-30] MEDS: CALCIUM ACETATE 667 MG CAPSULE PO SCH ×3 (08:54→20:58)
[2017-12-30] MEDS: BUSPIRONE 10 MG TABLET PEG SCH ×2 (08:54→20:58)
[2017-12-30] MEDS: CHOLESTYRAMINE LIGHT 4GM PACKET PEG SCH ×2 (08:54→20:59)
[2017-12-30] MEDS: METOPROLOL TARTRATE 25 MG TABLET PEG SCH (08:55)
[2017-12-30] MEDS: ALLOPURINOL 300 MG TABLET PEG SCH (08:55)
[2017-12-30] MEDS: DOXYCYCLINE 50 MG/5 ML ORAL SUSP PO SCH ×2 (09:42→20:58)
[2017-12-30] MEDS: SODIUM CHLORIDE FLUSH 10ML SYR IVF SCH ×2 (09:42→20:58)
[2017-12-30] MEDS: CEFTRIAXONE 2 GM in SODIUM CHLORIDE 0.9% 50 ML IV SCH (10:39)
[2017-12-30] MEDS: MICAFUNGIN 100 MG in SODIUM CHLORIDE 0.9% 100 ML IV SCH (20:17)
[2017-12-30] MEDS: INSULIN GLARGINE 100 UNITS/ML, PEN SQ-INSULIN SCH (21:01)
[2017-12-30] MEDS: ATORVASTATIN 40 MG TABLET PEG SCH (21:05)
[2017-12-31] MEDS: PROPOFOL 100 ML IV PRN ×2 (00:08→05:06)
[2017-12-31] MEDS: HEPARIN 5,000 UNITS/ML, 1ML SQ SCH ×3 (01:00→16:04)
[2017-12-31] MEDS: SODIUM BICARBONATE 8.4% 150 MEQ in DEXTROSE 5% 1,000 ML IV SCH (02:41)
[2017-12-31] MEDS: ALBUTEROL/IPRATROPIUM 2.5MG/0.5MG, 3 ML NPPB SCH ×4 (03:00→14:57)
[2017-12-31] MEDS: INSULIN LISPRO 100 UNITS/ML, PEN SQ-INSULIN SCH ×3 (03:32→14:50)
[2017-12-31 04:45] LABS: BASOPHILS # (AUTO) 0.01 x10^3/uL (0-0.1); BASOPHILS % (AUTO) 0 % (0-1); EOSINOPHILS # (AUTO) 0.17 x10^3/uL (0-0.4); EOSINOPHILS % (AUTO) 1 % (1-7); LYMPHOCYTES # (AUTO) 1.03 x10^3/uL (1-3.4); LYMPHOCYTES % (AUTO) 7 % (22-44); MD NO; MEAN CORPUSCULAR HEMOGLOBIN 31.9 pg (27.0-34.8); MEAN CORPUSCULAR HGB CONC 32.4 g/dL (32.4-35.8); MEAN CORPUSCULAR VOLUME 98.5 fL (80-100); MEAN PLATELET VOLUME 7.1 fL (7.4-10.4); MONOCYTES # (AUTO) 1.17 x10^3/uL (0.2-0.8); MONOCYTES % (AUTO) 8 % (2-9); NEUTROPHILS # (AUTO) 11.77 x10^3/uL (1.8-6.8); NEUTROPHILS % (AUTO) 83 % (42-75); PLATELET COUNT 282 x10^3/uL (130-400); RED BLOOD COUNT 2.34 x10^6/uL (3.82-5.3); RED CELL DISTRIBUTION WIDTH 19.1 % (9.6-15.2)
[2017-12-31] MEDS: GUAIFENESIN 100 MG/5 ML, 10ML UDC PEG SCH ×3 (05:40→16:03)
[2017-12-31] MEDS: PANTOPRAZOLE 40 MG IV IVPush SCH (07:55)
[2017-12-31] MEDS: CHOLESTYRAMINE LIGHT 4GM PACKET PEG SCH (07:55)
[2017-12-31] MEDS: METOPROLOL TARTRATE 25 MG TABLET PEG SCH (07:55)
[2017-12-31] MEDS: CALCIUM ACETATE 667 MG CAPSULE PO SCH ×2 (07:55→16:03)
[2017-12-31] MEDS: BUSPIRONE 10 MG TABLET PEG SCH (07:55)
[2017-12-31] MEDS: ALLOPURINOL 300 MG TABLET PEG SCH (07:56)
[2017-12-31] MEDS: SODIUM CHLORIDE FLUSH 10ML SYR IVF SCH (07:56)
[2017-12-31 08:12] LABS: ANION GAP 9 mmol/L (5-15); CALCIUM 7.8 mg/dL (8.5-10.1); CHLORIDE 105 mmol/L (98-107)
[2017-12-31 08:13] LABS: CREATININE 1.81 mg/dL (0.55-1.02)
[2017-12-31] MEDS ORDERED: ALBUMIN HUMAN 25% 100 ML IV SCH (08:30)
[2017-12-31] MEDS: DOXYCYCLINE 50 MG/5 ML ORAL SUSP PO SCH (08:46)
[2017-12-31] MEDS ORDERED: HEPA50002 SQ (09:16)
[2017-12-31] MEDS ORDERED: ERGO500017 PO (09:16)
[2017-12-31] MEDS ORDERED: FURO10VI37 IV (09:16)
[2017-12-31] MEDS ORDERED: INSU100I11 SQ-INSULIN (09:16)
[2017-12-31] MEDS ORDERED: PANT40VI IVPush (09:16)
[2017-12-31] MEDS ORDERED: CHOL239. PEG (09:16)
[2017-12-31] MEDS ORDERED: INSU100I13 SQ-INSULIN (09:16)
[2017-12-31] MEDS ORDERED: DOXY50SY PO (09:16)
[2017-12-31] MEDS ORDERED: IPRA3AMP30 NPPB (09:16)
[2017-12-31] MEDS ORDERED: LIDO10VI34 ENDO (09:16)
[2017-12-31 10:11] LABS: CLOSTRIDIUM DIFFICILE ANTIGEN NEGATIVE; CLOSTRIDIUM DIFFICILE TOXIN NEGATIVE (Negative)
[2017-12-31] MEDS: CEFTRIAXONE 2 GM in SODIUM CHLORIDE 0.9% 50 ML IV SCH (10:23)
[2017-12-31] MEDS ORDERED: FUROSEMIDE 40 MG/4 ML IV SCH (17:00)
== END 2017-12-31 17:27 | DRG 871 ==
LOC: ED 11:08 → EDIP 12:59 → 4WST 14:41 → CCU 12-24 14:34
PROVIDERS: ADMIT Internal Medicine; ATTEND Internal Medicine
PROC: 0T9B70Z Drainage of Bladder with Drainage Device, Via Natural or Artificial Opening (ICD-10-PCS; 2017-12-21)
PROC: 5A1945Z Respiratory Ventilation, 24-96 Consecutive Hours (ICD-10-PCS; principal; 2017-12-24)
PROC: 0BH17EZ Insertion of Endotracheal Airway into Trachea, Via Natural or Artificial Opening (ICD-10-PCS; 2017-12-24)
PROC: 30233N1 Transfusion of Nonautologous Red Blood Cells into Peripheral Vein, Percutaneous Approach (ICD-10-PCS; 2017-12-29)
PROC: 0BH17EZ Insertion of Endotracheal Airway into Trachea, Via Natural or Artificial Opening (ICD-10-PCS; 2017-12-29)
PROC: 5A1945Z Respiratory Ventilation, 24-96 Consecutive Hours (ICD-10-PCS; 2017-12-29)
DX: A41.9 Sepsis, unspecified organism (principal); J15.9 Unspecified bacterial pneumonia; J96.21 Acute and chronic respiratory failure with hypoxia; E43 Unspecified severe protein-calorie malnutrition; G93.41 Metabolic encephalopathy; I50.43 Acute on chronic combined systolic (congestive) and diastolic (congestive) heart failure; J96.22 Acute and chronic respiratory failure with hypercapnia; E87.1 Hypo-osmolality and hyponatremia; I13.0 Hypertensive heart and chronic kidney disease with heart failure and stage 1 through stage 4 chronic kidney disease, or unspecified chronic kidney disease; J44.0 Chronic obstructive pulmonary disease with (acute) lower respiratory infection; A04.72 Enterocolitis due to Clostridium difficile, not specified as recurrent; Z99.11 Dependence on respirator [ventilator] status; N17.9 Acute kidney failure, unspecified; B37.49 Other urogenital candidiasis; N25.81 Secondary hyperparathyroidism of renal origin; Z68.41 Body mass index [BMI] 40.0-44.9, adult; Z96.641 Presence of right artificial hip joint; D47.3 Essential (hemorrhagic) thrombocythemia; D63.8 Anemia in other chronic diseases classified elsewhere; E11.22 Type 2 diabetes mellitus with diabetic chronic kidney disease; E55.9 Vitamin D deficiency, unspecified; E87.5 Hyperkalemia; G47.33 Obstructive sleep apnea (adult) (pediatric); H70.90 Unspecified mastoiditis, unspecified ear; I65.22 Occlusion and stenosis of left carotid artery; N18.3 Chronic kidney disease, stage 3 (moderate); Z79.4 Long term (current) use of insulin; Z82.49 Family history of ischemic heart disease and other diseases of the circulatory system; Z86.14 Personal history of Methicillin resistant Staphylococcus aureus infection; Z86.73 Personal history of transient ischemic attack (TIA), and cerebral infarction without residual deficits; Z87.440 Personal history of urinary (tract) infections; Z87.891 Personal history of nicotine dependence; Z93.1 Gastrostomy status; Z90.49 Acquired absence of other specified parts of digestive tract; Z88.6 Allergy status to analgesic agent
CPT/HCPCS: 36415; 36600; 70450; 71045; 74018; 80048; 80053; 81001; 82140; 82272; 82306; 82550; 82607; 82728; 82746; 82803; 82805; 82947; 82962; 83036; 83540; 83550; 83605; 83735; 83880; 83970; 84100; 84145; 84439; 84443; 84478; 84484; 85014; 85018; 85025; 85045; 85610; 85730; 86850; 86900; 86923; 87040; 87070; 87077; 87081; 87086; 87106; 87205; 87324; 93005; 94002; 94003; 94150; 94640; 94660; 96360; 96361; 99291; J0696; J0712; J0878; J1644; J1940; J2248; J2250; J2405; J2543; J2704; J2997; J7060; J7070; J7620; P9047; C9113; J1815; J3475; J7030; J7040; P9016